=== PATIENT | female | born 1985 | race Caucasian/White ===

== ENCOUNTER 2023-02-26 20:42 | Emergency (ER) | payer BC ==
[~2023-02-26] VITALS: Ht 172.7 cm; Wt 68.0 kg
[2023-02-26 20:52] VITALS: BP 106/57; TEMP 98
[2023-02-26] MEDS ORDERED: IBUPROFEN 600 MG TABLET ONE (21:13)
[2023-02-26] MEDS ORDERED: TDAP [DIPH/PERTUSSIS/TET] 0.5 ML VIAL IM ONE ×2 (21:30→21:33)
[2023-02-26] MEDS ORDERED: IBUPROFEN 600 MG TABLET PO ONE (21:30)
[2023-02-26] MEDS ORDERED: HYDR-3973 PO (22:07)
[2023-02-26 22:21] VITALS: O2SAT 98
== END 2023-02-26 22:23 | disposition home or self-care (01) ==
LOC: ER 20:46
DX: S92.422A Displaced fracture of distal phalanx of left great toe, initial encounter for closed fracture (principal); S30.0XXA Contusion of lower back and pelvis, initial encounter; E03.9 Hypothyroidism, unspecified; F41.9 Anxiety disorder, unspecified; W01.0XXA Fall on same level from slipping, tripping and stumbling without subsequent striking against object, initial encounter; Y93.89 Activity, other specified; Y92.89 Other specified places as the place of occurrence of the external cause; Y99.8 Other external cause status
CPT/HCPCS: 72220-TC; 73660-TC; 90715